=== PATIENT | female | born 1975 | race Caucasian/White ===

== ENCOUNTER 2018-09-10 12:45 | Outpatient (CLI) | payer OTHER ==
[2018-09-10 13:07] LABS: BASOPHILS # (AUTO) 0.1 10^3/uL (0.0-0.1); BASOPHILS % (AUTO) 1.2 %; EOSINOPHILS # (AUTO) 0.1 10^3/uL (0.0-0.7); HGB - HEMOGLOBIN 13.8 g/dL (12.0-16.0); LYMPHOCYTES # (AUTO) 1.3 10^3/uL (1.5-3.5); MEAN CORPUSCULAR HEMOGLOBIN 31.8 pg (27.0-31.0); MEAN CORPUSCULAR HGB CONC 34.7 g/dL (32.0-36.0); MEAN CORPUSCULAR VOLUME 91.6 fL (81.0-99.0); MEAN PLATELET VOLUME 7.4 fL (7.9-10.8); MONOCYTES # (AUTO) 0.8 10^3/uL (0.0-1.0); MONOCYTES % (AUTO) 13.9 %; NEUTROPHILS # (AUTO) 3.2 10^3/uL (1.5-6.6); NEUTROPHILS % (AUTO) 58.9 %; PLT - PLATELET COUNT 327 10^3/uL (130-450); RED BLOOD COUNT 4.35 10^6/uL (4.20-5.40); RED CELL DISTRIBUTION WIDTH 12.9 % (12.0-15.0); WHITE BLOOD COUNT 5.5 x10^3/uL (4.8-10.8)
[2018-09-10 13:10] LABS: BILIRUBIN,URINE NEGATIVE (NEGATIVE); GLUCOSE, URINE (UA) NEGATIVE (NEGATIVE); KETONES,URINE (UA) NEGATIVE (NEGATIVE); LEUKOCYTE ESTERASE, URINE NEGATIVE (NEGATIVE); NITRITE,URINE NEGATIVE (NEGATIVE); OCCULT BLOOD,URINE NEGATIVE (NEGATIVE); PROTEIN,URINE NEGATIVE (NEGATIVE); UROBILINOGEN,URINE 0.2 (NORMAL) E.U./dL (NORMAL)
[2018-09-10 13:11] LABS: CLARITY,URINE CLEAR (CLEAR)
[2018-09-10 13:12] LABS: HCG UR QUAL NEGATIVE
[2018-09-10 13:16] LABS: CALCIUM 8.8 mg/dL (8.5-10.3); CREATININE 0.7 mg/dL (0.4-1.0)
== END 2018-09-10 12:46 | disposition home or self-care (01) ==
LOC: LAB 12:45
PROVIDERS: ATTEND Obstetrics & Gynecology
DX: Z01.812 Encounter for preprocedural laboratory examination (principal); N92.0 Excessive and frequent menstruation with regular cycle
CPT/HCPCS: 36415; 80048; 81001; 81003; 81025; 85025; 86850; 86870; 86900; 86901

== ENCOUNTER 2018-09-11 06:04 | Inpatient (IN) | payer OTHER ==
[2018-09-11] MEDS ORDERED: ceFAZolin 2 GM/50 ML 2 GM/50 ML BAG IV ONE (06:26)
[2018-09-11] MEDS ORDERED: LACTATED RINGERS 1,000 ML IV ONE ×4 (07:02→12:40)
--- NOTE | 2018-09-11 07:03 | ANESTHESIA ---
Pre-Anesthesia VS, & Labs - Diagnosis Mennorhagia - Procedure Lap assisted vaginal hysterectomy Vital Signs: Temp Pulse Resp BP Pulse Ox 36.8 C 81 16 147/102 H 98 09/11/18 06:47 09/11/18 06:47 09/11/18 06:47 09/11/18 06:47 09/11/18 06:47 Height 4 ft 11.5 in Weight (kg) 74.84 kg - NPO >8 hours Last Fluid Intake: water at 0300 - Is Patient ?: No Home Medications and Allergies Home Medications: Ambulatory Orders Bupropion HCl [Bupropion Xl] 150 mg PO 08/30/18 FLUoxetine [PROzac] 10 mg PO DAILY 08/30/18 Propranolol [Inderal] 10 mg PO BID PRN 08/30/18 Bupropion HCl [Bupropion Xl] 150 mg PO 08/30/18 FLUoxetine [PROzac] 10 mg PO DAILY 08/30/18 Propranolol [Inderal] 10 mg PO BID PRN 08/30/18 Allergies/Adverse Reactions: Allergies Allergy/AdvReac Type Severity Reaction Status Date / Time acetaminophen [From Percocet] Allergy Unknown Verified 08/30/18 11:26 erythromycin base Allergy Nausea Verified 08/30/18 11:26 oxycodone HCl * Allergy Unknown Verified 08/30/18 11:26 [From Percocet] Anes History & Medical History - Anesthetic History Anesthesia Complications: reports: No previous complications Family history of Anesthesia Complications: Denies Family history of Malignant Hyperthermia: Denies - Medical History Cardiovascular: reports: None Pulmonary: reports: None Gastrointestinal: reports: None Urinary: reports: Other Neuro: reports: None Musculoskeletal: reports: None Endocrine/Autoimmune: reports: None Blood Disorders: reports: None Skin: reports: None Smoking Status: Never smoker Psychosocial: reports: No issues indicated - Surgical History General: Cholecystectomy Gynecologic: Tubal ligation, Other Orthopedic: Other Exam General: Alert Dental: WNL, TMJ Mouth Openin Fingerbreadth Neck Mobility: Normal Mallampati classification: II Thyromental Distance: 4-6 cm Respiratory: Lungs clear Cardiovascular: Regular rate Neurological: Normal speech Mental/Cognitive Status: Alert/Oriented X3 Cognitive Status: Within normal limits Plan Anesthesia Type: General Consent for Procedure(s) Verified and Reviewed: Yes Code Status: Attempt Resuscitation ASA classification: 1-Healthy patient Is this case an emergency?: No
[2018-09-11] MEDS ORDERED: BUPIVACAINE 0.25% PF 30 ML VIAL ONE ×2 (07:14→07:52)
[2018-09-11] MEDS ORDERED: LIDOCAINE 1%-EPI 1:100000 30 ML MDV ONE ×2 (07:15→07:52)
[2018-09-11] MEDS ORDERED: BUPIVACAINE 0.25% PF 30 ML VIAL SUBQ ONE ×2 (08:10)
[2018-09-11] MEDS ORDERED: METHYLENE BLUE 0.5% 50 MG/10 ML AMPULE ONE (09:59)
[2018-09-11] MEDS ORDERED: ESTROGENS, CONJUGATED CREAM 30 GM TUBE VG ONE (11:10)
[2018-09-11] MEDS ORDERED: ESTROGENS, CONJUGATED CREAM 30 GM TUBE ONE (11:10)
[2018-09-11] MEDS ORDERED: KETOROLAC 30 MG/ML VIAL IVP ONE (11:50)
[2018-09-11] MEDS ORDERED: PROPOFOL 200 MG/20 ML VIAL IVP ONE (11:50)
[2018-09-11] MEDS ORDERED: DEXAMETHASONE 4 MG/ML VIAL IVP ONE (11:50)
[2018-09-11] MEDS ORDERED: MIDAZOLAM 2 MG/2 ML VIAL IVP ONE (11:50)
[2018-09-11] MEDS ORDERED: FUROSEMIDE 40 MG/4 ML VIAL IVP ONE (11:50)
[2018-09-11] MEDS ORDERED: LIDOCAINE-MPF 2% 5 ML VIAL IM ONE (11:50)
[2018-09-11] MEDS ORDERED: fentaNYL 250 MCG/5 ML VIAL IVP ONE (11:50)
[2018-09-11] MEDS ORDERED: NEOSTIGMINE 1 MG/1 ML 10 ML MDV IVP ONE (11:50)
[2018-09-11] MEDS ORDERED: GLYCOPYRROLATE 1 MG/5 ML VIAL IVP ONE (11:50)
[2018-09-11] MEDS ORDERED: ONDANSETRON 4 MG/2 ML VIAL IVP ONE (11:50)
[2018-09-11] MEDS ORDERED: ROCURONIUM 50 MG/5 ML VIAL IVP ONE (11:50)
[2018-09-11] MEDS: HYDROmorphone 1 MG/ML CARPUJECT ONE ×2 (12:00→12:08)
[2018-09-11] MEDS ORDERED: HYDROmorphone 1 MG/ML CARPUJECT ONE (12:17)
[2018-09-11] MEDS ORDERED: SODIUM CHLORIDE FLUSH 0.9% 10 ML SYRINGE ONE ×2 (13:26→16:02)
[2018-09-11] MEDS: HYDROcod/ACETAM 5/325 MG TABLET PO PRN ×3 (13:37→22:01)
[2018-09-11] MEDS: KETOROLAC 30 MG/ML VIAL IVP SCH ×2 (13:37→19:21)
[2018-09-11] MEDS: LACTATED RINGERS 1,000 ML IV SCH ×2 (13:37→18:00)
[2018-09-11] MEDS: SIMETHICONE CHEW 80 MG TABLET PO PRN ×2 (13:38→19:39)
--- NOTE | 2018-09-11 15:35 | OPERATIVE REPORT ---
Operative Report - General Admit Date: 09/11/18 Procedure Date: 09/11/18 Planned Procedure: Laparoscopic-assisted vaginal hysterectomy, bilateral salpingectomies Pre-Op Diagnosis: Abnormal uterine bleeding, pelvic pain Procedure Performed: Laparoscopic-assisted vaginal hysterectomy, bilateral salpingectomies, diagnostic cystoscopy Post Op Diagnosis: Endometriosis, uterine fibroids - Procedure Note Primary Surgeon: Dr. Dayanna Richey Secondary Surgeon: Dr. Luis A Ledezma Anesthesia Provider: QUINN Campos Anesthesia Technique: General ET tube, Local Pathology: Uterus, cervix, bilateral fallopian tubes IV Fluids (mL): 3,300 Estimated Blood Loss (mL): 300 Urine Output (mL): 230 Complications: Vaginal cuff hematoma - Other Other Information/Narrative: Indication: The patient is a 43-year-old 2 para 2 female here for a laparoscopic-assisted vaginal hysterectomy with bilateral salpingectomies for definitive surgical management of bothersome abnormal uterine bleeding and pelvic pain concerns. Her bleeding symptoms started approximately 6 months ago. Menses occur every 20-30 days, last 7 days, and are heaviest on days 2-3. She has severe pain on day 2 as well as intermittent sharp pain that shoots into her cervix. She denies any pain between menses but does have pain after interco urse, which is worse if she orgasms. She also has had pelvic pain on and off for several years, which is usually suprapubic in location. She feels a lot of pressure during intercourse, and her spouse has to push on her uterus to help provide relief. She had a prolonged episode of bleeding in June followed by persistent spotting after her endometrial biopsy (which was benign). In July she again had a very heavy cycle and was started on a control pill taper the continuous control pills while awaiting surgery. control pills were effective at controlling her bleeding; however, she desires definitive long-term therapy for her symptoms. Past medical trials have included Nexplanon, which may have injured a nerve. She had that device removed 1 month after, but left hand numbness has persisted. She tried Depo-Lupron for 1 month, which caused severe moodiness. 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 Risks, benefits, limitations, alternatives, and expectations or surgery were discussed, and the consent was reviewed and signed prior to the date of surgery. Findings: Exam under anesthesia: Uterus anteverted, 7 wks, with no adnexal masses palpable. Surgery: The uterus was enlarged with a few subsersosal fibroids, approximately 2 cm each. The fallopian tubes were status post ligation with clips, and the proximal left tube had a hydrosalpinx. A simple-appearing 1.5 cm cyst was noted on the right ovary and left in situ. The ovaries were otherwise normal in appearance. A single focus of endometriosis was seen within the cul-de-sac at the right side. No other endometriosis or adhesions were noted. Diagnostic cystoscopy was performed, and there was no evidence of injury to the bladder. Methylene blue urine was noted, but neither ureter effluxed during case despite administration of lasix. Laparoscopically, the ureters were well-visualized and peristalsed bilaterally. The surgical dissection appeared clear of the ureters on both sides. Procedure: The patient was taken to the operating room, where general endotracheal anesthesia was administered without difficulty. She was then positioned with her lower extremities in yellow-fin stirrups. Exam under anesthesia was then performed with the findings as noted above. Perineum, vagina, and abdomen were then prepped and draped in sterile fashion, and a harmon catheter was placed. Time out was then performed. Attention was first turned to placement of a uterine manipulator. A sterile bivalve speculum was inserted, and the cervix grasped with a single-toothed tenaculum. The cervix was then dilated until a HUMI uterine manipulator could be placed and balloon inflated. The tenaculum and speculum were then removed. Attention was then turned to the laparoscopy. 0.25% Marcaine, plain, was injected infraumbilically, then a 7-mm vertical skin incision made. A Verrees needle was then inserted through the anterior layers of the abdominal wall with saline drop test suggesting intraperitoneal placement. Carbon dioxide gas insufflation was then performed with appropriate opening pressures noted. Once 2 L of gas was instilled, a 0-degree, 5 mm laparoscope was inserted into a 5 mm trocar and passed through the anterior layers of the abdominal wall using Optiview technique. The abdomen was visualized, then 2 additional ports placed at the right and left lower quadrants, first instilling local anesthetic then placing 5 mm ports. The patient was placed into Trendelenberg and bowel swept out of the cul-de-sac. The left distal fallopian tube was grasped and pulled anteriorly while the left tubo-ovarian ligament was cross-clamped, cauterized, and cut using the PlasmaKinetic. This incision was then extended medially across the mesosalpinx until the cornual region was reached. The left round ligament was then cross- clamped, cauterized, and cut, then the anterior leaf of the broad ligament undermined, cauterized, and cut starting the bladder flap dissection on the left. The left utero-ovarian pedicle was then cross-clamped, cauterized, and cut, then this incision extended into the peritoneum inferiorly. The left uterine vessels were then skeletonized, cross-clamped, cauterized, and cut. Attention was then turned to the right side, where the dissection was completed in similar fashion. The bladder flap was extended across the midline, completely dissecting the bladder inferiorly. Any bleeding was controlled with cautery. The trocars were left in situ as well as the majority of the gas while attention was turned to the vaginal portion of the case. The lower extremities were elevated to high lithotomy, and the uterine manipulator was removed and a sterile weighted speculum placed. The cervix was grasped with a double-toothed tenaculum, then 1% Lidocaine with epi was injected circumferentially for hemostasis. It was noted that there was minimal cervical tissue posteriorly, where the posterior vagina and a small enterocele started close to the cervix. Additionally, the bladder reflection was low on the cervix as well. A circumferential incision was then carefully made with cauterization, taking care to avoid injury to the bladder or bowel. The posterior cul-de-sac was then entered sharply, and an Auvard speculum placed after tagging the midline posterior peritoneum. The anterior cul-de-sac was then entered bluntly using a moist sponge and the magnetometer operator's finger. The left, then right, uterosacral ligament was cross-clamped, cut, and suture-ligated with 0 vicryl. These were tagged for later identification. One additional pedicle was secured on each side, then the uterus, cervix, and tubes removed vaginally. There was a gap noted between the peritoneum and vaginal wall, tracking along the left side just below the uterosacral ligament. Additionally, a swelling posterior to the cuff was noted. 0-vicryl sutures were placed to secure bleeding, then they were released due to concern for a suspected vaginal cuff hematoma. A finger was placed into the rectum to differentiate enterocele from hematoma, and the tissue was not felt to be bowel. Repeat exam of the tissue separation noted persistent, slow bleeding with no clear source, deep within the side of the left upper vagina. The tissue spaced was then reapproximated to the close the defect on the left as well as a tear laterally along the vaginal cuff (approximately 2 cm). Given the suturing adjacent to the left uterosacral, the decision was made to perform a cystoscopy. Methylene blue was given intravenously, followed by Lasix, as her urine output had been minimal during the case. Though the urine was clearly blue on placement of the scope, neither ureter effluxed dyed urine (despite multiple visualized peristalses). The decision was made to return to the laparoscopic portion of the case to better assess the ureters. The peritoneum was then closed with a purse-string suture of 0 vicryl, then the vaginal cuff was irrigated with sterile saline. The vaginal mucosa was then closed with serial figure of eight sutures of 0 vicryl. The hematoma remained stable at 3 cm and did not feel overly taut at the completion of the vaginal portion of the case. A sponge stick was placed, and attention returned to laparoscopy to visualize the cuff for bleeding. The lower extremities were replaced into low lithotomy. Gas was instilled again, and the dissections site noted to have minimal bleeding at the left peritoneal edge just above the cuff. This was cauterized then hemostatic. Copious irrigation was performed. The ureters were visualized and peristalsed easily. The surgical site appeared clear of the path of the ureters. At this point the procedure was deemed complete. The gas was allowed to escape, and the trocars removed. The incisions were then closed with 4-0 monocryl in a subcuticular fashion followed by Dermabond. The sponge stick was removed from the vagina, and the vagina was packed with Premarin-soaked gauze to compress the cuff hematoma. The patient was then replaced supine, awakened, extubated, and transferred to the PACU in stable condition. There were no other complications. Sponge, lap, and needle count were correct x 3.
[2018-09-11] MEDS: MORPHINE 10 MG/ML VIAL IVP PRN ×2 (16:03→23:16)
[2018-09-11] MEDS: ONDANSETRON 4 MG/2 ML VIAL IVP PRN ×2 (16:03→22:01)
[2018-09-11] MEDS: buPROPion XL 150 MG TABLET PO SCH (17:17)
[2018-09-11] MEDS: FLUoxetine 10 MG CAPSULE PO SCH (17:17)
[2018-09-11] MEDS: SODIUM CHLORIDE FLUSH 0.9% 10 ML SYRINGE IVP SCH ×4 (17:19→22:01)
[2018-09-11] MEDS: DOCUSATE SODIUM 100 MG CAPSULE PO SCH (22:00)
[2018-09-12] MEDS: SODIUM CHLORIDE FLUSH 0.9% 10 ML SYRINGE IVP SCH ×2 (00:34→06:35)
[2018-09-12] MEDS: KETOROLAC 30 MG/ML VIAL IVP SCH ×2 (00:34→06:34)
[2018-09-12] MEDS: HYDROcod/ACETAM 5/325 MG TABLET PO PRN ×4 (02:06→16:14)
[2018-09-12 05:44] LABS: BASOPHILS % (AUTO) 0.4 %; EOSINOPHILS % (AUTO) 0.2 %; HGB - HEMOGLOBIN 11.2 g/dL (12.0-16.0); LYMPHOCYTES # (AUTO) 1.4 10^3/uL (1.5-3.5); LYMPHOCYTES % (AUTO) 16.9 %; MEAN CORPUSCULAR HEMOGLOBIN 32.2 pg (27.0-31.0); MEAN CORPUSCULAR HGB CONC 34.5 g/dL (32.0-36.0); MEAN CORPUSCULAR VOLUME 93.3 fL (81.0-99.0); MEAN PLATELET VOLUME 7.4 fL (7.9-10.8); MONOCYTES # (AUTO) 0.9 10^3/uL (0.0-1.0); MONOCYTES % (AUTO) 10.9 %; NEUTROPHILS # (AUTO) 6.1 10^3/uL (1.5-6.6); NEUTROPHILS % (AUTO) 71.6 %; PLT - PLATELET COUNT 230 10^3/uL (130-450); RED BLOOD COUNT 3.47 10^6/uL (4.20-5.40); RED CELL DISTRIBUTION WIDTH 12.4 % (12.0-15.0); WHITE BLOOD COUNT 8.6 x10^3/uL (4.8-10.8)
[2018-09-12 05:54] LABS: CALCIUM 7.9 mg/dL (8.5-10.3); CREATININE 0.8 mg/dL (0.4-1.0)
[2018-09-12] MEDS ORDERED: buPROPion XL 150 MG TABLET PO SCH ×2 (09:00)
[2018-09-12] MEDS ORDERED: FLUoxetine 10 MG CAPSULE PO SCH ×2 (09:00)
[2018-09-12] MEDS: DOCUSATE SODIUM 100 MG CAPSULE PO SCH (09:11)
[2018-09-12] MEDS: buPROPion XL 150 MG TABLET PO SCH (09:11)
[2018-09-12] MEDS: FLUoxetine 10 MG CAPSULE PO SCH (09:11)
[2018-09-12] MEDS: SIMETHICONE CHEW 80 MG TABLET PO PRN (09:51)
[2018-09-12] MEDS: ONDANSETRON 4 MG/2 ML VIAL IVP PRN (12:55)
[2018-09-12] MEDS: MORPHINE 10 MG/ML VIAL IVP PRN (12:56)
--- NOTE | 2018-09-12 15:18 | DISCHARGE SUMMARY ---
"Discharge Summary Admit Date: 09/12/18 Discharge Date: 09/13/18 Discharging Provider: Dr. Dayanna Richey Primary Care Provider: Dr. Washington Mckee Code Status: Attempt Resuscitation Condition at Discharge: Good Discharge Disposition: 01 Home, Self Care - DIAGNOSES Admission Diagnoses: Abnormal uterine bleeding, pelvic pain Discharge Diagnoses with Status of Each Condition: SHAGUFTA now s/p LAVH, bilateral salpinigectomies, diagnostic cystoscopy - HPI History of Present Illness: Patient with hx AUB and pelvic pain. Please see admission H&P for details. - CONSULTS | PROCEDURES Procedures: Laparoscopic-assisted vaginal hysterectomy, with bilateral salpingectomies and diagnostic cystoscopy - HOSPITAL COURSE Hospital Course: Surgery was notable for a vaginal cuff hematoma, which was not expanding. Due to dissection concerns, cystoscopy was performed, but ureteral orifices did not jet during cysto. Laparoscopy post-hyst noted + ureteral peristalsis, and ureters appeared free of the dissection area. After surgery, she was admitted to the PACU then maria in stable condition. She was afeb with stable VS during her stay. Vaginal packing and harmon were removed POD #1, and she was discharged home later in the day ambulating, tolerating a regular diet, voiding (with adequate volume and no notable hematuria), and controlling pain with oral meds. She had minimal to no vaginal bleeding after removal of the packing. Plan is for CT with IV contrast in the outpatient setting within 1-2 days in order to verify ureteral patency x 2. - ALLERGIES Allergies/Adverse Reactions: Allergies Allergy/AdvReac Type Severity Reaction Status Date / Time acetaminophen [From Percocet] Allergy Unknown Verified 08/30/18 11:26 erythromycin base Allergy Nausea Verified 08/30/18 11:26 oxycodone HCl * Allergy Unknown Verified 08/30/18 11:26 [From Percocet] - MEDICATIONS Home Medications: Ambulatory Orders Medication Instructions Recorded Confirmed Bupropion HCl [Bupropion Xl] 150 mg PO DAILY 08/30/18 09/11/18 FLUoxetine [PROzac] 10 mg PO DAILY 08/30/18 09/11/18 Propranolol [Inderal] 10 mg PO BID PRN 08/30/18 09/11/18 Docusate Calcium 240 mg PO BID PRN 09/11/18 09/11/18 Home Medications Other | Comments: Hydrocodone 2 tabs po Q 4-6 hrs prn pain, motrin 800 mg po Q 8 hrs, and surfak 240 mg po bid prn constipation - PHYSICAL EXAM AT DISCHARGE General Appearance: positive: No acute distress Respiratory: positive: No respiratory distress, Breath sounds nml Cardiovascular: positive: Regular rate & rhythm, No murmur Abdomen: positive: Nml bowel sounds, No distention, Tenderness (Appropriate postop tenderness present) Skin: positive: Other (LSC incisions x 3 approximating with no separation or eythema. Bruising noted at RLQ incision.) Extremities: positive: Non-tender, Nml appearance Neurologic/Psychiatric: positive: Oriented x3 - LABS Result Diagrams: 09/12/18 05:28 09/12/18 05:28 - FOLLOW UP Follow Up: Call [facility] for short-interval follow-up after CT done. Call [facility] to schedule CT with contrast 09/13 or 09/14. - TIME SPENT Time Spent in Discharge (Minutes): 20"
--- NOTE | 2018-09-12 15:27 | Discharge Plan ---
Discharge Plan Disposition: 01 Home, Self Care Condition: Good Diet: Regular Activity Restrictions: Pelvic rest x 6 wks; no driving or 2 wks; no heavy lifting or exercise for 6 wks; see handout. Shower Restrictions: No Driving Restrictions: Yes (No driving until pain-free off narcotic meds) Weight Bearing: Full Weight No Smoking: If you smoke, Please STOP! Call for help. Follow-up with: MARY PARKER MD [Primary Care Provider] -
[2018-09-12 15:53] VITALS: BP 116/78
== END 2018-09-12 16:30 | disposition home or self-care (01) | DRG 742 ==
LOC: MS2 06:04
PROVIDERS: ADMIT Obstetrics & Gynecology; ATTEND Obstetrics & Gynecology
PROC: 0W3R7ZZ Control Bleeding in Genitourinary Tract, Via Natural or Artificial Opening (ICD-10-PCS; 2018-09-11)
PROC: 0TJB8ZZ Inspection of Bladder, Via Natural or Artificial Opening Endoscopic (ICD-10-PCS; 2018-09-11)
PROC: 0UT9FZZ Resection of Uterus, Via Natural or Artificial Opening With Percutaneous Endoscopic Assistance (ICD-10-PCS; principal; 2018-09-11 07:30)
PROC: 0UT7FZZ Resection of Bilateral Fallopian Tubes, Via Natural or Artificial Opening With Percutaneous Endoscopic Assistance (ICD-10-PCS; 2018-09-11 07:30)
DX: D25.2 Subserosal leiomyoma of uterus (principal); N99.61 Intraoperative hemorrhage and hematoma of a genitourinary system organ or structure complicating a genitourinary system procedure; N80.3 Endometriosis of pelvic peritoneum; N70.11 Chronic salpingitis; N83.201 Unspecified ovarian cyst, right side; Q51.818 Other congenital malformations of uterus; I10 Essential (primary) hypertension; F41.9 Anxiety disorder, unspecified; F32.9 Major depressive disorder, single episode, unspecified; Z72.89 Other problems related to lifestyle; Y92.234 Operating room of hospital as the place of occurrence of the external cause; Z79.891 Long term (current) use of opiate analgesic; Z79.1 Long term (current) use of non-steroidal anti-inflammatories (NSAID)
CPT/HCPCS: 36415; 80048; 81025; 85025

== ENCOUNTER 2021-12-04 08:00 | Outpatient (CLI) | payer OTHER ==
[2021-12-04 18:04] LABS: BASOPHILS % (AUTO) 0.6 %; EOSINOPHILS # (AUTO) 0.1 10^3/uL (0.0-0.7); EOSINOPHILS % (AUTO) 0.9 %; HCT - HEMATOCRIT 39.9 % (37.0-47.0); HGB - HEMOGLOBIN 12.9 g/dL (12.0-16.0); LYMPHOCYTES # (AUTO) 1.8 10^3/uL (1.5-3.5); LYMPHOCYTES % (AUTO) 28.5 %; MEAN CORPUSCULAR HEMOGLOBIN 30.2 pg (27.0-31.0); MEAN CORPUSCULAR HGB CONC 32.3 g/dL (32.0-36.0); MEAN CORPUSCULAR VOLUME 93.4 fL (81.0-99.0); MEAN PLATELET VOLUME 10.2 fL (7.9-10.8); MONOCYTES # (AUTO) 0.6 10^3/uL (0.0-1.0); MONOCYTES % (AUTO) 9.8 %; NEUTROPHILS # (AUTO) 3.8 10^3/uL (1.5-6.6); NEUTROPHILS % (AUTO) 59.9 %; PLT - PLATELET COUNT 292 10^3/uL (130-450); RED BLOOD COUNT 4.27 10^6/uL (4.20-5.40); RED CELL DISTRIBUTION WIDTH 12.6 % (12.0-15.0); WHITE BLOOD COUNT 6.3 x10^3/uL (4.8-10.8)
[2021-12-04 18:16] LABS: ALBUMIN 4.5 g/dL (3.2-5.5); ALBUMIN/GLOBULIN RATIO 1.6 (1.0-2.2); BILIRUBIN,TOTAL 0.4 mg/dL (0.2-1.0); CALCIUM 9.3 mg/dL (8.5-10.3); CREATININE 0.7 mg/dL (0.4-1.0); POTASSIUM 3.8 mmol/L (3.5-5.0); TOTAL PROTEIN 7.4 g/dL (6.7-8.2)
[2021-12-04 18:25] LABS: THYROID STIMULATING HORMONE 1.43 uIU/mL (0.34-5.60)
[2021-12-04 18:54] LABS: FOLLICLE STIMULATING HORMONE 4.62 mIU/mL
== END 2021-12-04 23:59 ==
LOC: LAB.N 08:00
PROVIDERS: ATTEND Family Medicine
DX: R10.2 Pelvic and perineal pain (principal); N94.10 Unspecified dyspareunia
CPT/HCPCS: 36415; 80053; 83001; 84443; 85025